=== PATIENT | female | born 1980 | race Caucasian/White ===

== ENCOUNTER 2018-10-20 08:04 | Inpatient (IN) | payer MEDICAID ==
[2018-10-20] MEDS ORDERED: AMPICILLIN 2 GM/NS (PMX) 100 ML (08:58)
[2018-10-20] MEDS ORDERED: CARBOPROST 250 MCG INJ IM ×2 (09:00→14:30)
[2018-10-20] MEDS ORDERED: METHYLERGONOVINE 0.2 MG INJ IM (09:00)
[2018-10-20] MEDS ORDERED: BUTORPHANOL 2 MG INJ IV (09:00)
[2018-10-20] MEDS ORDERED: OXYTOCIN 30 UNITS/LR 500 ML IV ×2 (09:00→14:30)
[2018-10-20] MEDS ORDERED: MISOPROSTOL 200 MCG TAB PR ×2 (09:00→14:30)
[2018-10-20] MEDS: LACTATED RINGER'S 1,000 ML IV (09:01)
[2018-10-20] MEDS: AMPICILLIN 2 GM/NS (PMX) 100 ML IV (09:02)
[2018-10-20 09:25] LABS: ADD MAN DIFF? NO
[2018-10-20 09:28] LABS: BASOPHILS % 0.2 % (0.0-2.0); EOSINOPHILS % 0.3 % (0.0-7.0); HEMATOCRIT 40.2 % (37.0-47.0); HEMOGLOBIN 13.6 g/dl (12.0-16.0); LYMPHOCYTES # 2.7 10^3/ul (0.8-2.9); LYMPHOCYTES % 21.8 % (15.0-51.0); MEAN CORPUSCULAR HEMOGLOBIN 31.7 pg (29.0-33.0); MEAN CORPUSCULAR HGB CONC 33.8 g/dl (32.0-37.0); MEAN CORPUSCULAR VOLUME 93.7 fl (82.0-101.0); MEAN PLATELET VOLUME 11.5 fl (7.4-10.4); MONOCYTE # 0.7 10^3/ul (0.3-0.9); MONOCYTES % 5.4 % (0.0-11.0); NEUTROPHIL # 8.8 10^3/ul (1.6-7.5); NEUTROPHILS % 70.5 % (39.0-77.0); PLATELET COUNT 239 10^3/UL (140-415); RED BLOOD COUNT 4.29 10^6/ul (4.20-5.40); RED CELL DISTRIBUTION WIDTH 13.2 % (11.5-14.5)
[2018-10-20 09:28] LABS: WHITE BLOOD COUNT 12.5 10^3/ul (4.8-10.8)
[2018-10-20] MEDS ORDERED: LIDOCAINE 1% (MPF) 30 ML INJ (09:37)
[2018-10-20 09:48] LABS: ALANINE AMINOTRANSFERASE 17 IU/L (13-69); ALBUMIN 3.7 g/dl (3.3-4.9); ALBUMIN/GLOBULIN RATIO 1.15; ALKALINE PHOSPHATASE 179 IU/L (42-121); ANION GAP 9 (5-13); ASPARTATE AMINO TRANSFERASE 29 IU/L (15-46); BILIRUBIN,INDIRECT 0.3 mg/dl (0-1.1); BILIRUBIN,TOTAL 0.3 mg/dl (0.2-1.3); BLOOD UREA NITROGEN 9 mg/dl (7-20); CALCIUM 9.7 mg/dl (8.4-10.2); CARBON DIOXIDE 22 mmol/L (21-31); CHLORIDE 106 mmol/L (97-110); CREATININE 0.54 mg/dl (0.44-1.00); Estimated GFR > 60 mL/min (>60); GLUCOSE 82 mg/dl (70-220); SODIUM 137 mmol/L (135-144); TOTAL PROTEIN 6.9 g/dl (6.1-8.1); URIC ACID 5.2 mg/dl (3.1-7.9)
[2018-10-20 09:49] LABS: INR 0.82; PARTIAL THROMBOPLASTIN TIME 30.5 Sec (23.0-35.0); PROTIME 11.3 Sec (11.9-14.9); PT RATIO 0.9
[2018-10-20 10:21] LABS: HEPATITIS B SURFACE ANTIGEN NEGATIVE (NEGATIVE)
[2018-10-20] MEDS: LIDOCAINE 1% (MPF) 30 ML INJ INJ (12:11)
[2018-10-20] MEDS: OXYTOCIN 30 UNITS/LR 500 ML IV ×2 (12:21→13:11)
[2018-10-20] MEDS ORDERED: AMPICILLIN 1 GM/NS (PMX) 50 ML IV (13:00)
[2018-10-20] MEDS ORDERED: ACETAMINOPHEN 325 MG TAB PO (14:30)
[2018-10-20] MEDS ORDERED: DIBUCAINE 1% 30 GM OINT TOP (14:30)
[2018-10-20 14:54] LABS: RAPID PLASMA REAGIN NONREACTIVE (NR)
[2018-10-20] MEDS: HYDROCODONE/APAP (5/325) TAB PO (17:17)
[2018-10-20] MEDS: IBUPROFEN 600 MG TAB PO (17:17)
[2018-10-20] MEDS: LACTATED RINGER'S 1,000 ML IV* ×2 (17:20→22:10)
[2018-10-20] MEDS: LANOLIN HPA 1 PKT TOP (17:27)
[2018-10-20] MEDS: WITCH HAZEL/GLYCERIN PAD PR (17:28)
[2018-10-20] MEDS: BENZOCAINE 20% 56 ML SPRAY TOP (17:28)
[2018-10-20] MEDS: SENNA/DOCUSATE NA (8.6MG/50MG) TAB PO (21:36)
[2018-10-21] MEDS: IBUPROFEN 600 MG TAB PO ×5 (00:43→23:55)
[2018-10-21] MEDS: LACTATED RINGER'S 1,000 ML IV* (06:10)
[2018-10-21 08:49] LABS: ADD MAN DIFF? NO
[2018-10-21 09:01] LABS: WHITE BLOOD COUNT 13.8 10^3/ul (4.8-10.8)
[2018-10-21 09:01] LABS: BASOPHILS % 0.1 % (0.0-2.0); EOSINOPHILS # 0.1 10^3/ul (0.0-0.5); EOSINOPHILS % 0.7 % (0.0-7.0); HEMATOCRIT 28.4 % (37.0-47.0); HEMOGLOBIN 9.6 g/dl (12.0-16.0); LYMPHOCYTES # 2.7 10^3/ul (0.8-2.9); LYMPHOCYTES % 19.9 % (15.0-51.0); MEAN CORPUSCULAR HEMOGLOBIN 31.7 pg (29.0-33.0); MEAN CORPUSCULAR HGB CONC 33.8 g/dl (32.0-37.0); MEAN CORPUSCULAR VOLUME 93.7 fl (82.0-101.0); MEAN PLATELET VOLUME 11.3 fl (7.4-10.4); MONOCYTE # 0.5 10^3/ul (0.3-0.9); MONOCYTES % 3.9 % (0.0-11.0); NEUTROPHIL # 10.2 10^3/ul (1.6-7.5); NEUTROPHILS % 74.1 % (39.0-77.0); PLATELET COUNT 198 10^3/UL (140-415); RED BLOOD COUNT 3.03 10^6/ul (4.20-5.40); RED CELL DISTRIBUTION WIDTH 13.5 % (11.5-14.5)
[2018-10-21] MEDS: SENNA/DOCUSATE NA (8.6MG/50MG) TAB PO ×2 (10:16→21:01)
[2018-10-21] MEDS: LANOLIN HPA 1 PKT TOP (18:23)
[2018-10-22] MEDS: IBUPROFEN 600 MG TAB PO ×2 (05:31→12:00)
[2018-10-22] MEDS: DIPHTH/TET/ACEL PERTUSS (ADULT) 0.5 ML VIAL IM* (07:29)
[2018-10-22] MEDS: SENNA/DOCUSATE NA (8.6MG/50MG) TAB PO (09:07)
== END 2018-10-22 18:00 | disposition home or self-care (01) | DRG 807 ==
LOC: OBT 08:04 → L-D 08:06 → OBT 08:15 → L-D 08:15 → PP1 13:38
PROC: 10E0XZZ Delivery of Products of Conception, External Approach (ICD-10-PCS; principal; 2018-10-20)
PROC: 0UQGXZZ Repair Vagina, External Approach (ICD-10-PCS; 2018-10-20)
DX: O71.4 Obstetric high vaginal laceration alone (principal); Z37.0 Single live birth; Z3A.38 38 weeks gestation of pregnancy
CPT/HCPCS: 80053; 84560; 85025; 85610; 85730; 86592; 86850; 86900; 86901; 87340